=== PATIENT | female | born 1960 | race African-American/Black ===

== ENCOUNTER 2023-10-20 16:24 | Emergency (ER) | payer OTHER ==
[2023-10-20] MEDS ORDERED: ACETAMINOPHEN 325 MG TABLET (FP) ONE (16:51)
[2023-10-20 17:02] VITALS: BP 128/83; PULSE 88; RESP 16; TEMP 98.4; BMI 28.2
[2023-10-20] MEDS: ACETAMINOPHEN 325 MG TABLET (FP) PO ONE (17:02)
[2023-10-20 19:09] LABS: HIV INTERPRETATION NEGATIVE (NEGATIVE)
== END 2023-10-20 17:43 | disposition home or self-care (01) ==
LOC: FER 16:24
DX: S86.912A Strain of unspecified muscle(s) and tendon(s) at lower leg level, left leg, initial encounter (principal); W19.XXXA Unspecified fall, initial encounter
CPT/HCPCS: 36415; 73562-TC-LT-FY; 86803; 87389; 99284-25

== ENCOUNTER 2024-04-03 11:48 | Emergency (ER) | payer OTHER ==
[2024-04-03 12:04] VITALS: BP 124/85; PULSE 89; RESP 18; TEMP 98.8; BMI 29.9
[2024-04-03] MEDS: SODIUM CHLORIDE 1,000 ML IV STA (12:41)
[2024-04-03] MEDS ORDERED: FAMOTIDINE 20 MG/50 ML IVPB 20 MG/50 ML MG IVPB ONE (12:43)
[2024-04-03] MEDS ORDERED: ACETAMINOPHEN INJECTION 100 ML ONE (12:43)
[2024-04-03 12:46] LABS: HEMATOCRIT 40.9 % (32.4-45.2); HEMOGLOBIN 13.3 G/dL (10.7-15.3); MCH 26.5 pg (25.7-33.7); MCHC 32.4 g/dl (32.0-36.0); MEAN CELL VOLUME 81.8 fl (80-96); MEAN PLT VOLUME 7.8 fl (7.5-11.1); PLATELET COUNT 297.5 10^3/uL (134-434); WHITE BLOOD COUNT 4.7 10^3/uL (4.0-10.8)
[2024-04-03] MEDS: ACETAMINOPHEN 1000 MG/100 ML BAG IVPB ONE (12:48)
[2024-04-03] MEDS: FAMOTIDINE 20 MG/50 ML IVPB 20 MG/50 ML MG IVPB ONE (12:48)
[2024-04-03 12:52] LABS: EPITHELIAL CELLS 0-5 /hpf
[2024-04-03 12:57] LABS: ANISOCYTOSIS 1+
[2024-04-03 13:14] LABS: ALBUMIN 4.1 g/dl (3.4-5.0); BILIRUBIN,TOTAL 0.4 mg/dl (0.2-1); CALCIUM 9.3 mg/dl (8.5-10.1); CREATININE 0.8 mg/dl (0.6-1.3); POTASSIUM 4.2 mmol/L (3.5-5.1); TOT PROT 6.9 g/dl (6.4-8.2)
[2024-04-03] MEDS ORDERED: ONDANSETRON 4 MG/2 ML VIAL ONE (13:21)
[2024-04-03] MEDS: ONDANSETRON 4 MG/2 ML VIAL IVPUSH ONE (13:26)
[2024-04-03] MEDS ORDERED: MAG HYDROX/AL HYDROX/SIMETH 30 ML UNIT-DOSE CUP ONE (15:10)
[2024-04-03] MEDS: MAG HYDROX/AL HYDROX/SIMETH 30 ML UNIT-DOSE CUP PO ONE (15:11)
[2024-04-03] MEDS ORDERED: METOCLOPRAMIDE HCL INJECTION 10 MG/2 ML VIAL ONE (17:00)
[2024-04-03] MEDS: METOCLOPRAMIDE HCL INJECTION 10 MG/2 ML VIAL IVPB ONE (17:03)
== END 2024-04-03 17:34 | disposition home or self-care (01) ==
LOC: FER 11:48
PROC: 3E033GC Introduction of Other Therapeutic Substance into Peripheral Vein, Percutaneous Approach (ICD-10-PCS; principal; 2024-04-03)
PROC: 3E033NZ Introduction of Analgesics, Hypnotics, Sedatives into Peripheral Vein, Percutaneous Approach (ICD-10-PCS; 2024-04-03)
PROC: 3E033GC Introduction of Other Therapeutic Substance into Peripheral Vein, Percutaneous Approach (ICD-10-PCS; 2024-04-03)
PROC: 3E033GC Introduction of Other Therapeutic Substance into Peripheral Vein, Percutaneous Approach (ICD-10-PCS; 2024-04-03)
DX: R10.84 Generalized abdominal pain (principal); R11.2 Nausea with vomiting, unspecified; R19.7 Diarrhea, unspecified; R51.9 Headache, unspecified; R53.1 Weakness; Z20.822 Contact with and (suspected) exposure to COVID-19
CPT/HCPCS: 0241U-QW; 36415; 74177-TC; 80053; 81003; 81015; 83690; 84484; 85027; 87086; 87186; 93005; 99285-25; J0131; Q9967

== ENCOUNTER 2024-07-21 06:52 | Inpatient (IN) | payer OTHER ==
[2024-07-20 13:29] VITALS: BMI 28.0
[2024-07-21] MEDS ORDERED: ROCURONIUM BROMIDE 50 MG/5 ML SYRINGE ONE ×4 (07:11→15:53)
[2024-07-21] MEDS ORDERED: SUCCINYLCHOLINE CHLORIDE 200 MG/10 ML SYRINGE ONE (07:11)
[2024-07-21] MEDS ORDERED: MIDAZOLAM HCL 2 MG/2 ML SINGLE DOSE VIAL ONE (07:11)
[2024-07-21] MEDS ORDERED: PROPOFOL 20 ML ONE ×2 (07:11→17:12)
[2024-07-21] MEDS ORDERED: LIDOCAINE HCL/PF 2% SDV 5ML VIAL ONE (07:11)
[2024-07-21] MEDS ORDERED: BUPIVACAINE HCL/PF 0.25% (2.5MG/ML) 10 ML VIAL ONE (07:15)
[2024-07-21] MEDS: ceFAZolin 2 GRAM PREMIX BAG IVPB ONE ×2 (08:25)
[2024-07-21] MEDS ORDERED: DEXAMETHASONE SOD PHOSPHATE 4 MG/1 ML VIAL ONE ×2 (08:28→16:14)
[2024-07-21] MEDS ORDERED: ceFAZolin SODIUM 1 GM VIAL ONE ×2 (08:28→13:25)
[2024-07-21] MEDS: BUPIVACAINE HCL/PF 0.25% (2.5MG/ML) 10 ML VIAL IJ ONE ×3 (09:00→17:18)
[2024-07-21] MEDS ORDERED: PROMETHAZINE HCL 25 MG/1 ML VIAL IVPB PRN (09:26)
[2024-07-21] MEDS ORDERED: oxyCODONE HCL 5 MG TABLET PO PRN ×2 (09:26)
[2024-07-21] MEDS ORDERED: ONDANSETRON 4 MG/2 ML VIAL IVPUSH PRN (09:26)
[2024-07-21] MEDS ORDERED: HYDROmorphone HCl 2 MG/ML VIAL ONE (11:27)
[2024-07-21] MEDS ORDERED: ONDANSETRON 4 MG/2 ML VIAL ONE (13:25)
[2024-07-21] MEDS ORDERED: SEVOFLURANE 250 ML BTL ONE (14:29)
[2024-07-21] MEDS ORDERED: ACETAMINOPHEN INJECTION 100 ML ONE ×2 (14:29→18:07)
[2024-07-21] MEDS ORDERED: HYDROmorphone HCL CARPU-JECT 2 MG/1 ML DISP.SYRIN IVPB PRN (16:45)
[2024-07-21] MEDS ORDERED: SUGAMMADEX SODIUM 200 MG/2 ML VIAL ONE (17:12)
[2024-07-21] MEDS ORDERED: KETOROLAC TROMETHAMINE 30 MG/1 ML VIAL ONE (17:16)
[2024-07-21] MEDS: ACETAMINOPHEN 1000 MG/100 ML BAG IVPB ONE (18:07)
[2024-07-21] MEDS: LACTATED RINGERS SOLUTION 1,000 ML IV SCH (18:11)
[2024-07-21] MEDS: HYDROmorphone *PCA* 10MG/50ML DISP.SYRIN PCA SCH (18:19)
[2024-07-21] MEDS: ACETAMINOPHEN 1000 MG/100 ML BAG IVPB SCH (19:50)
[2024-07-21] MEDS: ATORVASTATIN CA 10 MG TABLET (FP) PO SCH (21:28)
[2024-07-22] MEDS: ARTIFICIAL TEARS OPHTHALMIC DROPS OU PRN (02:58)
[2024-07-22] MEDS: ONDANSETRON 4 MG/2 ML VIAL IVPUSH PRN (07:08)
[2024-07-22 08:37] LABS: HEMATOCRIT 31.9 % (34.1-44.9); HEMOGLOBIN 9.7 g/dL (11.2-15.7); MCHC 30.4 g/dl (32.2-35.5); MEAN CELL VOLUME 83.3 fl (79.4-94.8); MEAN PLT VOLUME 9.5 fl (9.4-12.3); PLATELET COUNT 319 x10^3/uL (182-369); RDW 13.8 % (12.4-16.4)
[2024-07-22 09:03] LABS: POTASSIUM 4.2 mmol/L (3.5-5.1)
[2024-07-22 09:11] LABS: BLOOD UREA NITROGEN 13.8 mg/dL (7-18)
[2024-07-22 09:14] LABS: CREATININE 0.8 mg/dL (0.55-1.3)
[2024-07-22] MEDS: ONDANSETRON 4 MG/2 ML VIAL IVPUSH SCH (09:16)
[2024-07-22] MEDS: METOCLOPRAMIDE HCL INJECTION 10 MG/2 ML VIAL IVPUSH SCH (09:16)
[2024-07-22] MEDS: KETOROLAC TROMETHAMINE 30 MG/1 ML VIAL IM PRN (17:08)
[2024-07-22] MEDS: MELATONIN 5 MG TABLETS PO PRN (21:36)
[2024-07-22 22:35] VITALS: RESP 18
[2024-07-23] MEDS ORDERED: ONDANSETRON 4 MG/2 ML VIAL IVPUSH PRN (07:32)
[2024-07-23] MEDS ORDERED: METOCLOPRAMIDE HCL INJECTION 10 MG/2 ML VIAL IVPUSH PRN (07:32)
[2024-07-23 08:11] LABS: ABSOLUTE IMMATURE GRANULOCYTES 0.03 x10^3/uL (0.0-0.031); BASOPHILS # 0.04 x10^3/uL (0.01-0.08); EOSINOPHIL % 0.5 % (0.7-5.8); EOSINOPHILS # 0.03 x10^3/uL (0.04-0.36); HEMATOCRIT 31.5 % (34.1-44.9); HEMOGLOBIN 9.7 g/dL (11.2-15.7); MCHC 30.8 g/dl (32.2-35.5); MEAN CELL VOLUME 84.5 fl (79.4-94.8); MEAN PLT VOLUME 9.5 fl (9.4-12.3); MONOCYTE % 10.6 % (4.7-12.5); PLATELET COUNT 289 x10^3/uL (182-369); RDW 13.8 % (12.4-16.4)
[2024-07-23 09:00] LABS: POTASSIUM 3.8 mmol/L (3.5-5.1)
[2024-07-23 09:06] LABS: BLOOD UREA NITROGEN 10.4 mg/dL (7-18); MAGNESIUM 2.1 mg/dL (1.8-2.4)
[2024-07-23 09:09] LABS: PHOSPHOROUS 2.5 mg/dL (2.5-4.9)
[2024-07-23 09:11] LABS: BILIRUBIN,TOTAL 0.4 mg/dL (0.2-1); CREATININE 0.8 mg/dL (0.55-1.3); TOT PROT 5.8 g/dl (6.4-8.2)
[2024-07-23] MEDS: ENOXAPARIN NA (PORCINE) 40 MG/0.4 ML DISP.SYRIN SQ SCH (09:26)
[2024-07-23 13:55] VITALS: BP 120/72; PULSE 93; TEMP 98.6
[2024-07-23] MEDS ORDERED: KETOROLAC TROMETHAMINE 10 MG TABLET PO SCH (18:00)
== END 2024-07-23 15:41 | disposition home or self-care (01) | DRG 337 ==
LOC: JASU-SURG 06:52 → SUATTDRO 06:52 → JASUSAT 06:52 → J6S 20:38 → JASUSAT 20:39 → J6S 07-22 09:09 → J8W 07-22 11:14
PROVIDERS: ADMIT Internal Medicine; ATTEND Nurse Practitioner Acute Care
PROC: 0DNW4ZZ Release Peritoneum, Percutaneous Endoscopic Approach (ICD-10-PCS; 2024-07-21)
PROC: 0KNL4ZZ Release Left Abdomen Muscle, Percutaneous Endoscopic Approach (ICD-10-PCS; 2024-07-21)
PROC: 0KNK4ZZ Release Right Abdomen Muscle, Percutaneous Endoscopic Approach (ICD-10-PCS; 2024-07-21)
PROC: 8E0W4CZ Robotic Assisted Procedure of Trunk Region, Percutaneous Endoscopic Approach (ICD-10-PCS; 2024-07-21)
PROC: 0WUF4JZ Supplement Abdominal Wall with Synthetic Substitute, Percutaneous Endoscopic Approach (ICD-10-PCS; principal; 2024-07-21 08:00)
DX: K43.9 Ventral hernia without obstruction or gangrene (principal); E78.5 Hyperlipidemia, unspecified
CPT/HCPCS: 36415; 80048; 80053; 83735; 84100; 85025; 85027; 86140; 86850; 86900; 86901; 88300-TC; 94010; 94760; C1781; J0131